=== PATIENT | female | born 1955 | race Caucasian/White ===

== ENCOUNTER 2016-05-14 09:40 | Emergency (ER) | payer OTHER ==
--- NOTE | ~2016-05-14 | CR63 ---
[facility] A Service of [facility] RADIOLOGY TEXT RESULTS PATIENT: NINO LEIGH LOCATION: [facility] : 57 UNIT #: [id number] AGE: [address]: Nicole Flores APRN SEX: F ORDER DR: [id number] [facility] [address] [place], [place] [address] [id number] E MR#: [id number] Acc #: [id number] NAME: NINO LEIGH : 1955 SEX: F STUDY DATE/TIME: 05/14/2016 9:01 UNIT: [facility] ROOM: STUDY DESCRIPTION: CR Chest 2 View Attending Physician: Nicole Flores A.P.R.N. Ordering Physician: Ed Jamal Gavin M.D. Primary Care Physician: Hetal Rizvi MEDICAL IMAGING REPORT This report is preliminary unless electronic signature is present EXAM Chest, PA and lateral, dated 05/14/2016. COMPARISON STUDIES None. HISTORY Cough for 1 week with wheezing, shortness of breath and congestion. PA and lateral views of the chest are obtained. The cardiovascular configuration is normal and the lungs are clear. Patient does have scoliosis. CONCLUSION Scoliosis otherwise negative chest. Dictated by... Joce Castellon M.D. THIS IS AN ELECTRONICALLY VERIFIED REPORT Joce Castellon M.D. at 05/16/2016 5:03 PM SILVIANO/ani TD: 05/14/2016 12:47 JOB #: [id number] MEDICAL IMAGING REPORT Page 1 of 1 COPY
[~2016-05-14 09:40] MED LIST: ABILIFY20 MG; ADVIL200 M3 PO; BENADRYL PO; CELEXA PO; DESYREL150 M1 PO; KLONOPIN1 MG PO; LIORESAL10 MG PO; LIPITOR20 MG PO; OMEPRAZOLE40 MG PO; VALTREX500 MG PO
== END 2016-05-14 10:43 | disposition home or self-care (01) ==
LOC: CED 09:40
DX: J45.21 Mild intermittent asthma with (acute) exacerbation (principal); I25.10 Atherosclerotic heart disease of native coronary artery without angina pectoris; F10.10 Alcohol abuse, uncomplicated; I10 Essential (primary) hypertension; F17.210 Nicotine dependence, cigarettes, uncomplicated; Z90.49 Acquired absence of other specified parts of digestive tract; Z90.710 Acquired absence of both cervix and uterus
CPT/HCPCS: 71020; 99283

== ENCOUNTER 2016-06-16 21:53 | Emergency (ER) | payer OTHER ==
--- NOTE | ~2016-06-16 | CR150 ---
[facility] A Service of [facility] RADIOLOGY TEXT RESULTS PATIENT: NINO LEIGH LOCATION: [facility] : 57 UNIT #: [id number] AGE: [address]: Beau Macias MD SEX: F ORDER DR: [id number] [facility] [address] [place], [place] [address] [id number] E MR#: [id number] Acc #: [id number] NAME: NINO LEIGH : 1955 SEX: F STUDY DATE/TIME: 06/17/2016 0:45 UNIT: [facility] ROOM: STUDY DESCRIPTION: CR Hip Min 2 Views Lt Attending Physician: Beau Macias M.D. Ordering Physician: Beau Macias M.D. Primary Care Physician: Hetal Rizvi MEDICAL IMAGING REPORT This report is preliminary unless electronic signature is present EXAM Left hip and pelvis HISTORY Fell today, tailbone and hip pain. FINDINGS AP pelvis and frog lateral view left hip demonstrates no fracture dislocation. Mild arthritic changes seen at the pubic symphysis. Calcifications over the left gluteus linear region compatible areas of fat necrosis. Mild degenerative change lumbar spine. IMPRESSION No acute findings. Dictated by... Elizabeth Beach M.D. THIS IS AN ELECTRONICALLY VERIFIED REPORT Elizabeth Beach M.D. at 06/17/2016 5:18 AM EVELINE/roberto TD: 06/17/2016 03:54 JOB #: [id number] MEDICAL IMAGING REPORT Page 1 of 1 COPY
--- NOTE | ~2016-06-16 | CR219 ---
[facility] A Service of [facility] RADIOLOGY TEXT RESULTS PATIENT: NINO LEIGH LOCATION: [facility] : 57 UNIT #: [id number] AGE: [address]: Beau Macias MD SEX: F ORDER DR: [id number] [facility] [address] [place], [place] [address] [id number] E MR#: [id number] Acc #: [id number] NAME: NINO LEIGH : 1955 SEX: F STUDY DATE/TIME: 06/17/2016 0:45 UNIT: [facility] ROOM: STUDY DESCRIPTION: CR Sacrum and Coccyx Min 2 Vie Attending Physician: Beau Macias M.D. Ordering Physician: Beau Macias M.D. Primary Care Physician: Hetal Arriola M.D. MEDICAL IMAGING REPORT This report is preliminary unless electronic signature is present EXAM Sacrum and coccyx HISTORY Fell today, tailbone pain. FINDINGS Routine views of the sacrum and coccyx demonstrates no fracture deformity. No lytic or blastic lesions. SI joints unremarkable. Mild degenerative changes lower lumbar spine. IMPRESSION No acute findings Dictated by... Elizabeth Beach M.D. THIS IS AN ELECTRONICALLY VERIFIED REPORT Elizabeth Beach M.D. at 06/17/2016 5:18 AM EVELINE/kaleb TD: 06/17/2016 04:01 JOB #: [id number] MEDICAL IMAGING REPORT Page 1 of 1 COPY
== END 2016-06-17 01:38 | disposition home or self-care (01) ==
LOC: CED 21:53
DX: S70.02XA Contusion of left hip, initial encounter (principal); S30.0XXA Contusion of lower back and pelvis, initial encounter; I10 Essential (primary) hypertension; F32.9 Major depressive disorder, single episode, unspecified; K21.9 Gastro-esophageal reflux disease without esophagitis; F17.210 Nicotine dependence, cigarettes, uncomplicated; W01.0XXA Fall on same level from slipping, tripping and stumbling without subsequent striking against object, initial encounter
CPT/HCPCS: 72220; 73502; 96372; 99284; J1885

== ENCOUNTER 2016-08-15 10:00 | Inpatient (IN) | payer OTHER ==
--- NOTE | ~2016-08-15 | DS ---
Unit #: [id number] #: [id number] [facility] [id number] [facility] [address] [place] [address] [id number] I MR#: [id number] NAME: NINO MENDOZA ROOM: [facility] Age: 60 Sex: F Admission Date: 08/15/2016 : 1955 Discharge Date: 08/19/2016 Attending Physician: Riky Arechiga M.D. Primary Care Physician: Generic Doctor Not In System DISCHARGE SUMMARY IDENTIFYING DATA Ms. Mendoza is a 60-year-old single white female, who is a resident of [place], [place], and is known to us from previous encounter, was self-referred to the hospital on a voluntary basis. DISCHARGE DIAGNOSES Psychiatric: Alcohol dependence, moderate and acute withdrawals; bipolar disorder by history. Medical: Bulging disk. Stressors: Moderate psychosocial stressors. HISTORY OF PRESENT ILLNESS Please see initial psychiatric evaluation for details. PAST PSYCHIATRIC HISTORY Please see initial psychiatric evaluation for details. PAST MEDICAL HISTORY Please see initial psychiatric evaluation for details. HOSPITAL COURSE The [facility] and was oriented to the hospital environment. Routine p.r.n. medications were initiated, and she was started back on her home medications including her Abilify and Minipress and was also started on the alcohol detox protocol and was closely monitored. She was taking the medications regularly and was tolerating them fairly well and was seen to be once again showing very poor insight into her situation and pushing to leave the hospital and was denying any suicidal ideations, intent, or plan and was not seen to be meeting criteria for involuntary psychiatric hospitalization and as such, it was decided she will be discharged home and will continue treatment on an outpatient basis. DISCHARGE MEDICATIONS Abilify 10 mg a day for bipolar and Minipress 1 mg at bedtime for PTSD. DISCHARGE CONDITION Stable. PROGNOSIS Fair. Dictated by... Unit #: [id number] #: [id number] Patient: NINO MENDOZA Angepatricio Constanza Jean/daniela TD: 08/19/2016 22:45 JOB #: [id number] DISCHARGE SUMMARY Page 1 of 1 X Riky Arechiga MD SUMMARY
--- NOTE | ~2016-08-15 | PN ---
Unit #: [id number] #: [id number] Patient: NINO MENDOZA [id number] [facility] [address] [place] [address] [id number] I MR#: [id number] NAME: NINO MENDOZA ROOM: P210 Age: 60 Sex: F Admission Date: 08/15/2016 : 1955 Attending Physician: Riky Arechiga M.D. Admitting Physician: Riky Arechiga M.D. Primary Care Physician: Generic Doctor Not In System [facility] PROGRESS NOTES DATE 08/17/2016 DISCUSSION Ms. Mendoza is a 60-year-old white female who was seen today and chart was reviewed and rather seclusive to herself. Meanwhile, she has been cooperative with treatment recommendations and has been taking medications and tolerating them fairly well with no reported side effects. MENTAL STATUS EXAMINATION Middle-aged white female who was casually dressed with fair personal hygiene and appears to be in no acute distress or discomfort. She was awake and alert on interaction with intact orientation. Her mood was anxious with congruent affect. She denies any suicidal or homicidal ideation. Her insight and judgement remains slightly impaired. TREATMENT PLAN 1. Will continue on current medications and treatment protocol. Will monitor her response and make further adjustments as needed. 2. Will continue to follow up. Dictated by... Constanza Austin/jen TD: 08/17/2016 20:48 JOB #: [id number] [facility] PROGRESS NOTES Page 1 of 1 X Riky Arechiga MD PROGRESS NOTE
--- NOTE | ~2016-08-15 | PA ---
Unit #: [id number] #: [id number] Patient: [facility]ENDOZA [id number] [facility] [address] [place] [address] [id number] I MR#: [id number] NAME: NINO MENDOZA ROOM: P210 Age: 60 Sex: F Admission Date: 08/15/2016 : 1955 Date of Assessment: 08/16/2016 Attending Physician: Riky Arechiga M.D. Admitting Physician: Riky Arechiga M.D. Primary Care Physician: Generic Doctor Not In System PSYCHIATRIC ASSESSMENT IDENTIFYING DATA Ms. Mendoza is a 60-year-old, single, white female, who is a resident of [place], [place], and is known to us from previous encounter, was self-referred to the hospital on voluntary basis. CHIEF COMPLAINT "I've been drinking uncontrollably." HISTORY OF PRESENT ILLNESS Ms. Mendoza is a 60-year-old white female with a long history of mood disorder and alcohol dependence, who was active under my care in the intensive outpatient treatment program, but was discharged back in June due to constantly drinking while being in the group and missing days and she now brought herself back to the hospital stating that she has been having increasing depression, anxiety, and that she has been drinking uncontrollably and that she cannot stop drinking. The patient reports that yesterday she drank all day long and could not stop and reported that her anxiety has increased lately and she feels it was related to her bad choices and drinking and reports that she is about to turn 61 and she cannot keep doing going on like this and does report increasing depression, anxiety, irritability, restlessness, feelings of hopelessness and helplessness, but denies any suicidal ideations, intent, or plan. SUBSTANCE ABUSE HISTORY The patient reports history of experimentation with cocaine, opioids and amphetamine, but alcohol has been her drug of choice. She reports that she has been drinking a pint and a half a day every day of the week. PAST PSYCHIATRIC HISTORY The patient has had a history of inpatient and outpatient psychiatric and chemical dependency treatment at [facility] and has been diagnosed and treated for bipolar disorder and review of the medical records indicate that she is currently on different psychotropic medications. PAST MEDICAL HISTORY The patient's medical history is significant for bulging disk in the back. ALLERGIES No known medication allergies. PERSONAL AND SOCIAL HISTORY A 60-year-old white female, who reports that she is single, unemployed, and lives alone and has poor social support system. Unit #: [id number] #: [id number] Patient: NINO MENDOZA MENTAL STATUS EXAMINATION Middle-aged white female, who was casually dressed with a fair personal hygiene, appears to be in no acute distress or discomfort. She was awake and alert on interaction with intact orientation to time, place, and person. Her mood was anxious and depressed with a congruent affect. Her speech was slow and restricted in content. Her thought processes were disorganized with some looseness of associations and flight of ideas. Her insight and judgment remain significantly impaired. DIAGNOSTIC IMPRESSION Psychiatric: Alcohol dependence, moderate and acute withdrawals; bipolar disorder by history. Medical: Bulging disk. Stressors: Moderate psychosocial stressors. TREATMENT PLAN 1. The patient has presented with a history of mood disorder, and has been decompensating and will need inpatient hospitalization for detoxification, safety, and stabilization. We will start her back on her home medications. We will adjust the medications and monitor response. 2. Supportive therapy was provided to the patient. 3. Safe, structured, and nourishing environment will be reported. ESTIMATED LENGTH OF STAY 4 to 5 days. Limit ABILITY TO HELP SELF Limited. WILLINGNESS TO HELP SELF The patient appears to be willing to help self. STRENGTHS 1. Communicative. 2. Cooperative. PROBLEMS 1. Chronic dysphoric symptoms. 2. Chronic chemical dependency. 3. Poor social support system. DISCHARGE CRITERIA This will be contingent upon the patient's ability to go through detox without having any significant withdrawal symptoms as well as her ability to stay safe to herself, particularly after discharge from the hospital. Dictated by... Riky Arechiga M.D. YOAN/daniela Unit #: [id number] #: [id number] Patient: NINO MENDOZA TD: 08/16/2016 08:11 JOB #: [id number] PSYCHIATRIC ASSESSMENT Page 1 of 1 X Riky Arechiga MD PSYCHIATRIC ASSESSMENT
--- NOTE | ~2016-08-15 | PN ---
Unit #: [id number] #: [id number] Patient: NINO MENDOZA [id number] [facility] [address] [place] [address] [id number] I MR#: [id number] NAME: NINO MENDOZA ROOM: P210 Age: 60 Sex: F Admission Date: 08/15/2016 : 1955 Attending Physician: Riky Arechiga M.D. Admitting Physician: Riky Arechiga M.D. Primary Care Physician: Generic Doctor Not In System [facility] PROGRESS NOTES DATE OF SERVICE: 08/16/2016 SUBJECTIVE Ms. Mendoza is a 60-year-old white female, who was seen today and chart was reviewed, and case was discussed with the staff. She has been anxious, withdrawn, and has been complaining of persistent depressive symptoms. Meanwhile, she has been taking medication and tolerating them fairly well with no reported side effects. MENTAL STATUS EXAMINATION Middle-aged white female who was casually dressed with fair personal hygiene, appears to be in no acute distress or discomfort. She was awake and alert on interaction with intact orientation. Her mood was anxious with a congruent affect. She denies any suicidal or homicidal ideations. Her insight and judgment remain slightly impaired. TREATMENT PLAN 1. We will continue on her current medications and treatment protocol. We will monitor her response to medications and make further adjustments as needed. 2. We will continue to follow up. Dictated by... Constanza Austin/daniela TD: 08/17/2016 06:10 JOB #: [id number] [facility] PROGRESS NOTES Page 1 of 1 X Riky Arechiga MD PROGRESS NOTE
--- NOTE | ~2016-08-15 | PN ---
Unit #: [id number] #: [id number] Patient: NINO MENDOZA [id number] [facility] [address] [place] [address] [id number] I MR#: [id number] NAME: NINO MENDOZA ROOM: P210 Age: 60 Sex: F Admission Date: 08/15/2016 : 1955 Attending Physician: Riky Arechiga M.D. Admitting Physician: Riky Arechiga M.D. Primary Care Physician: Generic Doctor Not In System [facility] PROGRESS NOTES DATE 08/18/2016 DISCUSSION Ms. Mendoza is a 60-year-old white female who was seen today and chart was reviewed and case was discussed with the staff. She has been anxious, withdrawn and rather seclusive to herself and at the same time, has been getting impatient wanting to leave and wanting to get out of the hospital and has been trying to mask and minimize her symptoms just so she can get discharged from the program. This has been particular pattern of hospitalizations and ____. MENTAL STATUS EXAMINATION Middle-aged white female who was casually dressed with fair personal hygiene and appears to be in no acute distress or discomfort. She was awake and alert with impaired attention and concentration. Her mood was anxious with congruent affect. She denies any suicidal or homicidal ideation. Her insight and judgement remains slightly impaired. TREATMENT PLAN 1. Will continue on current medications and treatment protocol. Will monitor her response to the medications and make further adjustments as needed. 2. Will continue to follow up. Dictated by... Constanza Austin/jen TD: 08/18/2016 22:42 JOB #: [id number] Unit #: [id number] #: [id number] Patient: NINO MENDOZA PROGRESS NOTES Page 1 of 1 X Riky Arechiga MD PROGRESS NOTE
--- NOTE | ~2016-08-15 | HP ---
Unit #: [id number] #: [id number] Patient: ALEXANDRIA LEIGH [id number] [place] [address] [id number] I MR#: [id number] NAME: ALEXANDRIA LEIGH ROOM: P210 Age: 60 Sex: F Admission Date: 08/15/2016 : 1955 Attending Physician: Riky Arechiga M.D. Admitting Physician: Riky Arechiga M.D. Primary Care Physician: Anshu Doctor Not In System HISTORY AND PHYSICAL HISTORY OF PRESENT ILLNESS Alexandria is a 60 year old admitted to [address] [place] [address] because of her continued abuse of alcohol. PAST MEDICAL HISTORY 1. Long history of alcohol abuse. 2. Hyperlipidemia. 3. High blood pressure. 4. Herpes simplex. 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 ALLERGIES No known drug allergies. SOCIAL HISTORY Smokes one-half pack per day. Has a history of alcohol abuse and continues to drink. She denies illicit drug use. FAMILY HISTORY Medically noncontributory. REVIEW OF SYSTEMS CONSTITUTIONAL: No fever or chills. HEENT: Denies any sore throat, ear pain or runny nose. CARDIOVASCULAR: Denies chest pain, irregular heart rhythm or palpitations. CHEST: Denies shortness of breath or cough. No hemoptysis. GASTROINTESTINAL: Denies nausea, vomiting, diarrhea or chronic constipation. ENDOCRINE: Denies history of increased thirst or urination. No recent significant weight loss or gain. GENITOURINARY: Denies dysuria, frequency, or hematuria. SKIN: Denies any rashes. HEMATOLOGIC: Denies history of increased bleeding or bruising. MUSCULOSKELETAL: Denies any hot, swollen joints. No generalized muscle pain. NEUROLOGIC: Denies problems with vision or speech. No frequent, severe headaches. No numbness, tingling or weakness in any extremities. Denies loss of bladder or bowel control. CURRENT MEDICATIONS Unit #: [id number] #: [id number] Patient: ALEXANDRIA LEIGH 1. Detox protocol 2. Risperdal 1 mg b.i.d. 3. Desyrel 100 mg q.h.s. 4. Abilify 10 mg q.a.m. PHYSICAL EXAMINATION GENERAL: Alert, well-nourished, in no apparent distress. VITAL SIGNS: Blood pressure 120/80, heart rate 80, respirations 16, temperature 98.6. WEIGHT: 188 pounds. HEIGHT: 5'3". SKIN: Warm and dry without rash or lesion. HEENT: Normocephalic. TMs not viewed. Oral and nasal passages clear. Conjunctivae clear. Pupils equal, round and reactive to light and accommodation. Extraocular movements intact. NECK: Supple without lymphadenopathy or thyromegaly. HEART: Regular rate and rhythm without murmur. LUNGS: Clear. ABDOMEN: Soft, nontender. : Not done. EXTREMITIES: No evidence of cyanosis, clubbing or edema. Moves all extremities without focal deficit. NEUROLOGICAL: Grossly within normal limits. Cranial Nerves: II: Visual duong are intact. III, IV AND : Extraocular movements are intact. Pupils are equal, round and reactive to light. V: Facial sensation is grossly normal. VII: She is unable to turn up the right side of her mouth. She cannot frown the right side of her brow and right lid is weak. VIII: She is very hard of hearing in the right ear, auditory acuity grossly intact in the left. IX, X: Uvula is midline. Phonation is normal. XI: Patient shrugs shoulders and turns head normally. XII: Tongue protrudes in the midline. Sensory and Motor Function: Sensory and motor sensation is grossly normal. Motor: moves all extremities well. Coordination: Gait is normal. Deep Tendon Reflexes: Intact. IMPRESSION 1. Psychiatric admission 2. 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 RECOMMENDATIONS PSYCHIATRIC: Per psychiatrist. MEDICAL: I see no contraindications to participating in facility's activities. MEDICAL PROGNOSIS Good. MEDICAL CONDITION Stable. Dictated by... Unit #: [id number] #: [id number] Patient: LUALEXANDRIAJavi EvansAIoana. for Constanza Cunningham/allie TD: 08/15/2016 22:08 JOB #: [id number] HISTORY AND PHYSICAL Page 1 of 1 X Rehana Stoddard X HISTORY AND PHYSICAL
[2016-08-16 09:44] LABS: URINE APPEARANCE CLEAR; URINE BILIRUBIN NEG (NEG); URINE BLOOD NEG (NEG); URINE COLOR YELLOW; URINE GLUCOSE NEG (NEG); URINE KETONE NEG (NEG); URINE LEUKOCYTE ESTERASE NEG (NEG); URINE NITRATE NEG (NEG); URINE PROTEIN NEG (NEG); URINE SPECIFIC GRAVITY 1.004 (1.003-1.035); URINE UROBILINOGEN 0.2 MG/DL (NEG)
[2016-08-16 09:46] LABS: BASOPHIL% 0.3 % (0-2.5); EOSINOPHIL# 0.1 X10e3 (0-0.7); EOSINOPHIL% 1.3 % (0.0-7.0); HEMATOCRIT 41.9 % (35.0-45.0); HEMOGLOBIN 14.7 gm/dL (12.0-16.0); LYMPHOCYTE# 1.7 X10e3 (1.0-3.5); LYMPHOCYTE% 19.8 % (17.0-45.0); MEAN CELL VOLUME 96.5 FL (83-96); MEAN CORPUSCULAR HEMOGLOBIN 33.7 PG (28-34); MEAN PLATELET VOLUME 6.9 FL (6.5-11.5); MONOCYTE# 0.6 X10e3 (0-1.0); MONOCYTE% 7.3 % (3.0-12.0); NEUTROPHIL% 71.3 % (40-75); PLATELET COUNT 246 X10e3 (140-420); RED BLOOD COUNT 4.35 X10e (3.90-5.30); RED CELL DISTRIBUTION WIDTH 13.4 % (11.0-15.5); WHITE BLOOD COUNT 8.5 X10e3 (4.0-10.5)
[2016-08-16 09:49] LABS: DIFF IND NO
[2016-08-16 10:06] LABS: ALBUMIN SERUM 4.2 g/dL (3.5-5.0); BILIRUBIN,TOTAL 0.6 mg/dL (0.2-2.0); CALCIUM SERUM 9.4 mg/dL (8.4-10.2); CREATININE SERUM 0.7 mg/dL (0.6-1.4); GLOM FILT RATE Estimated 94.8 mL/min (>60); POTASSIUM 4.4 mmol/L (3.5-5.1); PROTEIN TOTAL SERUM 7.2 g/dL (6.0-8.3)
[2016-08-16 10:24] LABS: AMPHETAMINE NEG (NEG); BARBITURATES NEG (NEG); BENZODIAZEPINES NEG (NEG); COCAINE NEG (NEG); MARIJUANA NEG (NEG); OPIATES POS (NEG); TRICYCLIC ANTIDEPRESSANTS NEG (NEG); U METHADONE NEG (NEG)
== END 2016-08-19 09:47 | disposition home or self-care (01) | DRG 897 ==
LOC: P2S 12:11
PROVIDERS: Psychiatry & Neurology Psychiatry
PROC: HZ2ZZZZ Detoxification Services for Substance Abuse Treatment (ICD-10-PCS; principal; 2016-08-15)
DX: F10.239 Alcohol dependence with withdrawal, unspecified (principal); G97.49 Accidental puncture and laceration of other nervous system organ or structure during other procedure; F31.9 Bipolar disorder, unspecified; I10 Essential (primary) hypertension; E78.5 Hyperlipidemia, unspecified; F17.210 Nicotine dependence, cigarettes, uncomplicated
CPT/HCPCS: 80053; 80307; 81003; 85025

== ENCOUNTER 2016-09-12 19:49 | Emergency (ER) | payer OTHER ==
[2016-09-12 21:02] LABS: BASOPHIL# 0.1 X10e3 (0-0.3); BASOPHIL% 0.9 % (0-2.5); EOSINOPHIL# 0.1 X10e3 (0-0.7); EOSINOPHIL% 1.2 % (0.0-7.0); HEMATOCRIT 44.4 % (35.0-45.0); HEMOGLOBIN 15.6 gm/dL (12.0-16.0); LYMPHOCYTE# 2.8 X10e3 (1.0-3.5); LYMPHOCYTE% 35.9 % (17.0-45.0); MEAN CELL VOLUME 94.4 FL (83-96); MEAN CORPUSCULAR HEMOGLOBIN 33.2 PG (28-34); MEAN CORPUSCULAR HGB CONC 35.2 g/dL (30-36); MEAN PLATELET VOLUME 6.5 FL (6.5-11.5); MONOCYTE# 0.7 X10e3 (0-1.0); MONOCYTE% 8.6 % (3.0-12.0); NEUTROPHIL# 4.1 X10e3 (1.5-7.1); NEUTROPHIL% 53.4 % (40-75); PLATELET COUNT 299 X10e3 (140-420); WHITE BLOOD COUNT 7.7 X10e3 (4.0-10.5)
[2016-09-12 21:03] LABS: DIFF IND NO
[2016-09-12 21:18] LABS: AMPHETAMINE NEG (NEG); BARBITURATES NEG (NEG); BENZODIAZEPINES POS (NEG); COCAINE NEG (NEG); MARIJUANA NEG (NEG); OPIATES NEG (NEG); TRICYCLIC ANTIDEPRESSANTS NEG (NEG); U METHADONE NEG (NEG)
[2016-09-12 22:11] LABS: ALBUMIN SERUM 4.5 g/dL (3.5-5.0); BILIRUBIN, DIRECT 0.1 mg/dL (0.0-0.2); BILIRUBIN,INDIRECT 0.5 mg/dL (0.0-0.9); BILIRUBIN,TOTAL 0.6 mg/dL (0.2-2.0); CALCIUM SERUM 9.2 mg/dL (8.4-10.2); CREATININE SERUM 0.6 mg/dL (0.6-1.4); GLOM FILT RATE Estimated 99.1 mL/min (>60); PROTEIN TOTAL SERUM 7.9 g/dL (6.0-8.3)
== END 2016-09-12 23:17 | disposition home or self-care (01) ==
LOC: CED 19:49
PROVIDERS: Student in an Organized Health Care Education/Training Program
DX: F10.10 Alcohol abuse, uncomplicated (principal); Z90.710 Acquired absence of both cervix and uterus; Z90.49 Acquired absence of other specified parts of digestive tract; F17.200 Nicotine dependence, unspecified, uncomplicated; F32.9 Major depressive disorder, single episode, unspecified; Z88.8 Allergy status to other drugs, medicaments and biological substances
CPT/HCPCS: 36415; 80048; 80076; 80307; 83735; 85025; 96365; 96375; 99284; C9113; G0480; J2405; J3411; J3475